=== PATIENT | male | born 1985 | race Caucasian/White ===

== ENCOUNTER 2016-07-04 10:31 | Emergency (ER) | payer MEDICAID ==
[~2016-07-04] VITALS: Ht 170.2 cm; Wt 83.9 kg
[2016-07-04] MEDS ORDERED: HYDROCHLOROTHIA1 TAB PO (10:40)
--- NOTE | 2016-07-04 10:44 | Emergency Room Report ---
History of Present Illness Time Seen by [id number] Presenting Problem in Triage Pt arrived:Walked Presenting Problem:VOMITED A SCANT AMOUNT OF BLOOD ON SATURDAY, AND HAD A BLOODY STOOL TOOK IMODIUM TO RELIEVE DIARRHEA AND DIDN'T HAVE ANOTHER BLOODY STOOL TILL OVERNIGHT LAST NIGHT/EARLY THIS MORNING. 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 N Clinical Suspician of Infection? N Mental Status: 1 - Regular (Normal Baseline) Sepsis Risk:Low Sepsis Risk Have you (or family members/close friends) recently traveled outside the [place]? N If Yes, where/when: Have you had exposure to infectious disease within the past month? TB? Other? Specify: Comment The patient states that on Saturday he thought that he vomited up a small amount of blood. Since then he has developed lower abdominal pain and has been passing blood in his stool. Initially he had some diarrhea, but stool today was formed with dark to maroon colored blood. He says he also passed blood in his stool about a month ago but did not get it checked. No fever. He has not vomited since Saturday. He does not drink alcohol heavily. He had 2 beers on Saturday. He takes ibuprofen 3-6 times a week for headaches. ALLERGIES Coded Allergies: No Known Allergies (07/04/16) Home Medications Reported Medications LISINOPRIL/HYDROCHLOROTHIAZIDE (Lisinopril-Hctz 10-12.5 MG Tab) 1 TAB PO DAILY #30 History Medical History General Angina: No CT: No Hypertension? No Hyperlipidemia? No CHF? No COPD? No Asthma? No CVA? No Seizures? No Diabetes? No GB Disease: No MRSA? No TB? No Cancer? No Immunization Hx Ped.Immunizations UTD Yes DT/Tetanus 1-4 YRS Surgical Hx Previous Surgery?Y ARM ANKLE Social History Smoking Hx Smoker: Never Smoker Tobacco: No Are you/the child exposed to second-hand smoke: No Alcohol Alcohol: No Review of Systems All Other Systems Reviewed and Negative Constitutional denies fever Gastrointestinal see HPI, abdominal pain, diarrhea, vomiting Physical Exam Vital Signs Vital Signs Date Time Temp Pulse Resp B/P Pulse O2 O2 Flow FiO2 Ox Delivery Rate 07/04 1037 74 18 159/115 100 General Appearance normal appearance, WD/WN Eye Exam - bilateral eye normal exam, bilateral eye PERRL, bilateral eye EOMI Ear, Nose, Throat hearing grossly normal, normal ENT inspection Neck normal inspection, non-tender, supple, full range of motion Respiratory Status Yes: trachea midline, chest symmetrical, non tender chest. No: respiratory distress. Lung Sounds bilateral: normal breath sounds, lungs clear. Cardiovascular normal exam, regular rate/rhythm, no peripheral edema, no gallop, no JVD, no murmur, no rub, normal peripheral pulses Peripheral Pulses Pulses normal Yes Gastrointestinal normal bowel sounds, normal exam, non tender, soft, no organomegaly Extremities normal range of motion, normal inspection Rectal red and maroon-colored blood in the rectum. No visible external lesions. No palpable internal masses or lesions. 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 No Results/Orders Laboratory Tests 07/04/16 1055: Stool Occult Blood POSITIVE 07/04/16 1035: Sodium 141, Potassium 3.2 L, Chloride 102, Carbon Dioxide 31, BUN 11, Creatinine 1.1, Estimated Creat Clear 117, Estimated GFR (MDRD) 79, Glucose 89, Calcium 9.1, Total Bilirubin 0.6, AST 15, ALT 36, Alkaline Phosphatase 66, Total Protein 7.9, Albumin 4.1, Globulin 3.8 H, Albumin/Globulin Ratio 1.1, WBC 7.4, RBC 5.21, Hgb 15.6, Hct 45.2, MCV 86.7, RDW 12.1, Plt Count 266, MPV 5.5 L, Gran % 64.0, Gran # 4.8, Lymphocytes % 28.3, Monocytes % 6.3, Eosinophils % 1.0, Basophils % 0.3, Lymphocytes # 2.1, Monocytes # 0.5, Eosinophils # 0.1, Basophils # 0.0, PUBS MCHC 34.6, MCH 30.0 Current Medication Orders Sig/Elidia Start time Last Medication Dose Route Stop Time Status Admin Iopamidol 75 ML ONCE ONE 07/04 1145 DC 07/04 IV 07/04 1146 1145 Sodium Chloride 10 ML PRN PRN 07/04 1145 AC 07/04 IV 07/04 1314 1145 Sodium Chloride 10 ML PRN PRN 07/04 1045 AC 07/04 IV 07/05 1043 1145 Orders Procedure Date/time Status DIET-NOTHING BY MOUTH 07/[address] ABD/PELVIS REQ 07/04 1059 Complete IV SALINE LOCK 07/04 1043 Active STOOL OCCULT BLOOD 07/04 1043 Complete CBC WITH AUTO DIFF 07/04 1043 Complete CHEM 12 PROFILE 07/04 1043 Complete XRAY/CT/US XRAY/CT/US CT abdomen, pelvis Comment CT scan interpreted by radiologist: Colitis Progress - 12:20 PM: Case discussed with Dr. Martinez, on-call for surgery. He recommends treating with antibiotics including Flagyl and follow-up in his office in a couple of days. Departure Departure Disposition DC Home or Self Care(routine) Clinical Impression Primary Impression: Acute colitis Condition STABLE Referrals Eleno Medina (Family) STEPHEN MARTINEZ MD Call today to arrange appointment to be seen within the next 2 days. Patient Instructions DI for Rectal Bleeding Additional Instructions Additional instructions for ABDOMINAL PAIN: See your physician as soon as possible for further evaluation. Return immediately if worsening abdominal pain, vomiting, shortness of breath, fever, vomiting of blood or abdominal distention. ED Critical Care Critical Care No at 1231
[2016-07-04 10:48] LABS: HEMOGLOBIN 15.6 g/dL (14.1-18.0); LYMPH # 2.1 K/mm3 (0.7-4.5); LYMPH % 28.3 % (10-50)
[2016-07-04 11:19] LABS: STOOL OCCULT BLOOD POSITIVE (NEG)
--- NOTE | 2016-07-04 12:08 | RADIOLOGY REPORT PS360 ---
CT ABD PELVIS W/ CONTRAST CLINICAL INDICATION: LOWER ABDOMEN PAIN AND BLOOD IN STOOL ORDERING PHYSICIAN: Giovanny Darling MD PATIENT AGE: 30 years COMPARISON: None TECHNIQUE: Axial images obtained with sagittal and coronal reformats. PROCEDURE: Oral Contrast: None IV Contrast: 75 mm [id number]. FINDINGS: Lung bases are clear. The liver, gallbladder, spleen, right adrenal gland, and pancreas have an unremarkable appearance. There is minimal nodularity left adrenal gland nonspecific. No intestinal obstruction or free air is evident. No obstructing renal or ureteral calculi. There is mild diffuse thickening of the distal aspect of the transverse colon, splenic flexure, and ascending colon and proximal sigmoid colon consistent with colitis. No evidence of diverticulitis. No free air or pneumatosis. Unremarkable appendix. No pelvic mass or abnormal fluid collection. No acute bony anomalies. IMPRESSION: 1. Mild thickening of the transverse, descending and proximal sigmoid colon with colitis.. This could be infectious or inflammatory. This pattern may also be seen with ischemic colitis however, the age group is younger than expected. Vasculitis or hypercoagulable states could result in ischemic colitis in a younger patient. 2. No other significant anomalies evident
[2016-07-04] MEDS ORDERED: CIPRO 500MG TA500 MG PO (12:32)
[2016-07-04] MEDS ORDERED: FLAGYL500 M1 PO (12:32)
[2016-07-04 12:44] VITALS: BP 142/79
== END 2016-07-04 12:45 | disposition home or self-care (01) ==
LOC: ER 10:31
PROVIDERS: Emergency Medicine
DX: K52.9 Noninfective gastroenteritis and colitis, unspecified (principal)
CPT/HCPCS: Q9967